=== PATIENT | male | born 1945 ===

== ENCOUNTER 2021-11-01 22:31 | Inpatient (IN) | payer MEDICARE, OTHER ==
[~2021-11-01] VITALS: Ht 172.7 cm; Wt 81.2 kg
[2021-11-02 00:21] LABS: HEMATOCRIT 36.1 % (36.7-47.1); MEAN CORPUSCULAR VOLUME 82.6 fL (73.0-96.2); PLATELET COUNT (AUTO) 121 K/uL (152-348)
--- NOTE | 2021-11-02 00:36 | NUR ---
Called [facility] di[facility] for transfer
[2021-11-02 00:43] LABS: ALANINE AMINOTRANSFERASE 22 U/L (16-63); ALKALINE PHOSPHATASE 76 U/L (50-136); ASPARTATE AMINOTRANSFERASE 24 U/L (15-37); BILIRUBIN,TOTAL 1.2 mg/dL (0.2-1.0); CARBON DIOXIDE 24 mmol/L (21-32); GLUCOSE 142 mg/dL (74-106); UREA NITROGEN, BLOOD 16 mg/dL (7-18)
[2021-11-02] MEDS ORDERED: CEFTRIAXONE 1 G in IV DEXTROSE 5% 50 ML IV ONE (01:00)
[2021-11-02] MEDS ORDERED: AZITHROMYCIN 250 MG TABLET PO ONE (01:00)
[2021-11-02] MEDS ORDERED: CEFTRIAXONE /D5W 50ML IVPB **ER PYXIS IV ONE (01:08)
[2021-11-02 01:16] LABS: CHLORIDE 105 mmol/L (98-107); CREATININE 1.5 mg/dL (0.6-1.3); POTASSIUM 3.6 mmol/L (3.5-5.1); TOTAL PROTEIN, SERUM 6.8 g/dL (6.4-8.2)
[2021-11-02] MEDS ORDERED: FUROSEMIDE 40 MG/4 ML VIAL ONE (03:47)
[2021-11-02] MEDS ORDERED: ENOXAPARIN SODIUM 80 MG/0.8 ML DISP.SYRIN SQ ONE ×2 (03:47→06:30)
--- NOTE | 2021-11-02 05:45 | NUR ---
Gave report to Obdulia HISTOLOGIC TECHNICIAN
[2021-11-02] MEDS ORDERED: ZOLPIDEM 5 MG TABLET PO PRN (06:15)
[2021-11-02] MEDS ORDERED: MAGNESIUM HYDROXIDE 30 ML LIQUID UDC PO PRN (06:15)
[2021-11-02] MEDS ORDERED: ACETAMINOPHEN 325 MG TABLET PO PRN (06:15)
[2021-11-02] MEDS ORDERED: Z GUARD REMEDY PASTE 57 GM TUBE TOP PRN (06:15)
[2021-11-02] MEDS ORDERED: TAMS-3 PO (06:20)
[2021-11-02] MEDS ORDERED: FURO-152 PO (06:22)
[2021-11-02] MEDS ORDERED: CARV3.122 PO (06:22)
[2021-11-02] MEDS ORDERED: FINA5TAB11 PO (06:22)
[2021-11-02] MEDS ORDERED: LISI10TA29 PO (06:22)
[2021-11-02] MEDS ORDERED: FUROSEMIDE 40 MG/4 ML VIAL IV ONE ×2 (06:30→09:00)
[2021-11-02 06:40] VITALS: BP 128/63
--- NOTE | 2021-11-02 06:45 | NUR ---
Admitted a 75 y.o male patient fro ER via eric DX: NSTEMI, Acute CHF. To CCU 2 as tele overflow. Patient AAO speaks mostly Slovenian. With SOB on exertion, unable to tolerate lying flat in bed. Placed on high ron's position. O2 3L NC. With Byrd catheter; anuric. Had a dose of Lasix in ER.
--- NOTE | 2021-11-02 07:00 | NUR ---
Patient wants to get out of bed to urinate. Gown was wet when patient was received from ER. Explained that he has a catheter. Patient claims that it's not working. Large amounts of bloody tinged urine noted coming out around penile orifice. Attempted to remove Byrd catheter but unable to. Patient is screaming in pain.
--- NOTE | 2021-11-02 07:15 | NUR ---
Report given to Shereen BARRIENTOS.
--- NOTE | 2021-11-02 07:30 | NUR ---
Received patient at this time on 3L NC, frias not working, shift supervisor film processing at bedside try to fix frias, patient is in pain, saying has had problem before, on a previous hospital admission at [place], does not want to have another frias placed, unable to remove frias at this time, patient in too much pain. Frias is not draining lasix was reported to be given in ER and UA needed collection. Patient states it has not been functioning over 2 months and has been urinating around frias. Due to manipulation patient is slightly urinating blood around frias. Will inform primary for urology consult. Patient states he is not complaint with home medications, has not refilled his "prostate" medication in over 2 months due to carelessness to get medication refill from doctor. Patient also states that on previous hospital admission was recommended to have surgery and he refused and ever since has used an indwelling frias catheter. He states he was also told that prostate was the size of a grapefruit. He came to the hospital today via ambulance because he had been feeling short of breath with some chest pain and that is when he decided to call ambulance to be brought to the hospital. Patient states only drinks medication when he is not feeling well and starts feeling fine and will stop taking them again.
[2021-11-02 08:00] VITALS: BP 106/46
[2021-11-02] MEDS ORDERED: ASPIRIN 81 MG TAB.CHEW PO SCH (09:00)
[2021-11-02] MEDS ORDERED: LIDOCAINE 2% (UROJET) 10 ML JELLY MM PRN (11:00)
--- NOTE | 2021-11-02 11:00 | NUR ---
Je at bedside to replace Byrd.
--- NOTE | 2021-11-02 11:30 | NUR ---
will consult urologist to see patient.
[2021-11-02 12:00] VITALS: BP 106/60
[2021-11-02] MEDS ORDERED: BUMETANIDE INJ 6 MG in IV DEXTROSE 5% 36 ML IV ONE (12:00)
[2021-11-02] MEDS ORDERED: MINERAL OIL 30 ML OIL PO ONE (12:00)
[2021-11-02] MEDS ORDERED: MINERAL OIL FLEET ENEMA 133 ML BOTTLE RC ONE (12:30)
--- NOTE | 2021-11-02 13:00 | NUR ---
injected through balloon port mineral oil per je aponte for balloon desolvation and be able to pull out frias. urology consult has been established ffor frias replacement per Je.
--- NOTE | 2021-11-02 15:00 | NUR ---
Je ordered to attempt to DC frias after aspiration from balloon port. discontinuing frias was unsuccessful. patient is able to urinate from around frias cath.
--- NOTE | 2021-11-02 15:15 | NUR ---
Unable to pull out frias informed Je aponte. Leave frias in place for now as long as patient is able to urinate and urologist will follow up with him today.
[2021-11-02 16:00] VITALS: BP 122/66
[2021-11-02] MEDS: CARVEDILOL 3.125 MG TABLET PO SCH (17:19)
--- NOTE | 2021-11-02 19:18 | NUR ---
UROLOGIST IZA CAME AND ASSISTED AT B/S FOR REMOVAL OF THE OLD FARMER CATHETER AND INSERTION OF A NEW FARMER CATHETER .
[2021-11-02] MEDS: HYDROMORPHONE 2 MG/1 ML DISP.SYRIN IM PRN (19:27)
--- NOTE | 2021-11-02 19:27 | NUR ---
given Dilaudid c/o patient verbalized pain 10/10 to his penis area,while IZA trying to removed the old frias catheter .
--- NOTE | 2021-11-02 19:37 | NUR ---
HUMBERTO KENDRICK SUCCESSFUL REMOVED THE OLD CATHETER AND INSERTED A SOFÍA COUDE CATHETER .
--- NOTE | 2021-11-02 19:40 | NUR ---
collected urine and send to lab.
[2021-11-02 20:00] VITALS: BP 101/52
--- NOTE | 2021-11-02 20:00 | NUR ---
changed soiled linens and gown ,patient able to help in turning .
[2021-11-02 20:09] LABS: *BILIRUBIN,URIN NEGATIVE (NEGATIVE); *BLOOD, URINE 3+ (NEGATIVE); *CLARITY,URINE CLOUDY (CLEAR); *COLOR,URINE RED (YELLOW); *KETONES,URINE NEGATIVE (NEGATIVE); *UROBILINOGEN,URINE 0.2 E.U./dl (NORMAL); LEUKOCYTE ESTERASE ,URINE 1+ (NEGATIVE); NITRITE, URINE NEGATIVE (NEGATIVE); UGLUCOSE NEGATIVE (NEGATIVE)
--- NOTE | 2021-11-02 20:15 | NUR ---
patient urinary output about 400ml ,red (hematuric ) in color with small clots bloods, will continue to monitor urinary output .
[2021-11-02 20:22] LABS: RBC,URINE TNTC /HPF (0-3)
--- NOTE | 2021-11-02 22:00 | NUR ---
patient in bed sleeping no respiratory distress noted ,breathing even and unlabored rr 16 saturation 95%.
[2021-11-03] VITALS: BP 100/52
--- NOTE | 2021-11-03 00:30 | NUR ---
sleeping in bed easily arousable v/s wnl . no respiratory distress noted.callight placed with in reach advised to call for help /assistance .
--- NOTE | 2021-11-03 02:30 | NUR ---
am care done bath patient ,changed soiled linens and gown . patient still with hematuria in the urine ,no blood clots ,patient denies pain ,went back to sleep.
[2021-11-03 04:08] VITALS: BP 102/61
--- NOTE | 2021-11-03 05:24 | NUR ---
due antibiotic given flushed via the left hand heplock .
[2021-11-03 05:56] LABS: MEAN CORPUSCULAR HEMOGLOBIN 26.8 uug (23.8-33.4); MEAN CORPUSCULAR VOLUME 82.6 fL (73.0-96.2); PLATELET COUNT (AUTO) 106 K/uL (152-348)
[2021-11-03] MEDS ORDERED: CEFTRIAXONE 1 G in IV DEXTROSE 5% 50 ML IV SCH (06:00)
[2021-11-03 06:31] LABS: CARBON DIOXIDE 30 mmol/L (21-32); CHLORIDE 102 mmol/L (98-107); CHOLESTEROL 149 mg/dL (<200); CREATININE 1.9 mg/dL (0.6-1.3); GLUCOSE 99 mg/dL (74-106); HDL CHOLESTEROL 53 mg/dL (40-60); MAGNESIUM 2.1 mg/dL (1.8-2.4); PHOSPHOROUS 4.4 mg/dL (2.5-4.9); TRIGLYCERIDES 63 MG/DL (30-150); UREA NITROGEN, BLOOD 27 mg/dL (7-18)
[2021-11-03] MEDS ORDERED: LISINOPRIL 10 MG TABLET PO SCH (09:00)
[2021-11-03] MEDS ORDERED: TAMSULOSIN HCL 0.4 MG CAP.SR.24H PO SCH (09:00)
[2021-11-03] MEDS: CARVEDILOL 3.125 MG TABLET PO SCH ×2 (10:30→10:50)
[2021-11-03] MEDS: FINASTERIDE 5 MG TABLET PO SCH ×2 (10:30→10:50)
[2021-11-03] MEDS: HYDROMORPHONE 2 MG/1 ML DISP.SYRIN IM PRN ×3 (10:32→12:08)
[2021-11-03 12:00] VITALS: BP 125/65
[2021-11-03] MEDS ORDERED: CEPH250C PO (12:43)
--- NOTE | 2021-11-03 16:58 | NUR ---
1640 P.M. 75 Yr. old Hisp. male was admitted for C.H.F., S/P M.I.., unknown when this occured., acute C.H.F. Hematuria. Dr. Sanchez , urologist inserted a coude frias catherter yesterday. Folsey drainede 1,000 ccs of dark red urine. is aware of the hematuria. Pt. ate well today breakfast and lunch.
== END 2021-11-03 20:00 | disposition home or self-care (01) | DRG 871 ==
LOC: ER 22:33 → CCU 11-02 06:02
PROVIDERS: ADMIT Nurse Practitioner Acute Care; ATTEND Nurse Practitioner Acute Care
PROC: 0T2BX0Z Change Drainage Device in Bladder, External Approach (ICD-10-PCS; principal; 2021-11-02)
DX: A41.51 Sepsis due to Escherichia coli [E. coli] (principal); I50.33 Acute on chronic diastolic (congestive) heart failure; I21.A1 Myocardial infarction type 2; E87.2 Acidosis; N13.8 Other obstructive and reflux uropathy; N17.9 Acute kidney failure, unspecified; R17 Unspecified jaundice; I11.0 Hypertensive heart disease with heart failure; N40.1 Benign prostatic hyperplasia with lower urinary tract symptoms; R33.8 Other retention of urine; D64.9 Anemia, unspecified; D69.6 Thrombocytopenia, unspecified; H54.62 Unqualified visual loss, left eye, normal vision right eye; I35.2 Nonrheumatic aortic (valve) stenosis with insufficiency; R31.0 Gross hematuria; Z79.899 Other long term (current) drug therapy; Z20.822 Contact with and (suspected) exposure to COVID-19
CPT/HCPCS: 36415; 70030-TC; 71045; 83605; 83735; 84100; 85025; 85730; 86140; 87040; 87077; 87086; 87400; 93005; 93307; 97161; G0378; J0696; J1170; J1650; J1940; J3490; J7060; Q0144; U0003